=== PATIENT | female | born 1990 | race Caucasian/White ===

== ENCOUNTER 2025-04-23 20:49 | Emergency (ER) | payer MEDICAID ==
[~2025-04-23] VITALS: Ht 165.1 cm; Wt 66.4 kg
[2025-04-23 21:32] VITALS: O2SAT 100
[2025-04-23 22:02] VITALS: BP 135/79; PULSE 84; RESP 18; TEMP 36.7; O2SAT 100
== END 2025-04-24 01:25 | disposition left against medical advice (07) ==
LOC: ER 20:50
DX: J02.9 Acute pharyngitis, unspecified (principal); Z53.21 Procedure and treatment not carried out due to patient leaving prior to being seen by health care provider